=== PATIENT | female | born 1950 | race Caucasian/White ===

== ENCOUNTER 2018-06-10 21:20 | Emergency (ER) | payer BC ==
--- NOTE | 2018-06-10 22:09 | EDPHY ---
H & P Stated Complaint: near syncope, diaphoretic, nausea, vomiting @2100 abnormal rhythm per EMS Time Seen by Provider: 06/10/18 21:53 HPI/ROS: Chief Complaint: Nausea, vomiting, sweating HPI: 67-year-old woman was out to dinner at the [employer] restaurant this evening when she had the sudden onset of a wave of nausea, per family became very sweaty and then had several episodes of vomiting. Symptoms lasted for about 10 min. After she vomited she felt much better. EMS was called but they refused transport at that time. She did not have any chest pain or shortness of breath. She did not have any syncope. No recent illness. No fevers or chills. No cough. She has a family history of coronary disease in her father who was a long-time smoker. She does not have any other risk factors for heart disease. She currently is symptom free. Does not have a history of similar episodes in the past. ROS: 10 systems were reviewed and were negative except those elements noted in the HPI. PMH: Denies Social History: No smoking, occasional alcohol Family History: Father has a history of coronary artery disease but was a long- term smoker Physical Exam: Gen: Awake, Alert, No Distress HEENT: Nose: no rhinorrhea Eyes: PERRLA, EOMI Mouth: Moist mucosa Neck: Supple, no JVD Chest: nontender, lungs clear to auscultation Heart: S1, S2 normal, no murmur Abd: Soft, non-tender, no guarding Back: no CVA tenderness, no midline tenderness Ext: no edema, non-tender Skin: no rash Neuro: CN II-XII intact, Sensation grossly intact, Strength 5/5 in bilateral upper and lower extremities - Personal History Current Tetanus/Diphtheria Vaccine: Yes Current Tetanus Diphtheria and Acellular Pertussis (TDAP): Yes - Medical/Surgical History Hx Asthma: No Hx Chronic Respiratory Disease: No Hx Diabetes: No Hx Cardiac Disease: No Hx Renal Disease: No Hx Cirrhosis: No Hx Alcoholism: No Hx HIV/AIDS: No Hx Splenectomy or Spleen Trauma: No Other PMH: HTN - Social History Smoking Status: Never smoked Constitutional: Initial Vital Signs Temperature (C) 36.5 C 06/10/18 21:23 Heart Rate 87 06/10/18 21:23 Respiratory Rate 20 06/10/18 21:23 Blood Pressure 166/96 H 12/28/18 21:23 O2 Sat (%) 95 06/10/18 21:23 O2 Delivery Mode Room Air Allergies/Adverse Reactions: quinine Allergy (Verified 06/10/18 21:23) Home Medications: Medication Instructions Recorded Lisinopril/Hydrochlorothiazide 06/10/18 Potassium Chloride 40 meq PO DAILY #60 tablet.er 06/10/18 Medical Decision Making - Diagnostics EKG Interpretation: ECG time 9:37 p.m., sinus rhythm with a rate of 77, normal axis, normal intervals, no acute ST or T-wave changes. Impression: Normal ECG. ED Course/Re-evaluation: Patient's ECG is normal. Troponin 0. I have explained to her that I cannot rule out the possibility of a heart attack without serial troponins. I have also explained that cardiac problems can present on usually and without chest pain in woman. Patient understands this. She does not wish to stay in the emergency department for repeat troponin at this time. I have explained that this could represent a serious cardiac abnormality and she understands this. She will return for any concerns. She does not wish to remain have any further testing at this time. She is hypokalemic. She says that this is not a new condition for her. I have ordered some potassium for her here and prescriptions for potassium supplementation. She needs to follow up with primary care physician which she understands. She will return for any concerns. - Data Points Laboratory Results: Laboratory Results 06/10/18 21:44 06/10/18 21:44 06/10/18 06/10/18 06/10/18 21:56 21:44 21:44 WBC 7.47 10^3/uL 10^3/uL (3.80-9.50) RBC 4.93 10^6/uL 10^6/uL (4.18-5.33) Hgb 14.9 g/dL g/dL (12.6-16.3) Hct 43.1 % % (38.0-47.0) MCV 87.4 fL fL (81.5-99.8) MCH 30.2 pg pg (27.9-34.1) MCHC 34.6 g/dL g/dL (32.4-36.7) RDW 13.4 % % (11.5-15.2) Plt Count 222 10^3/uL 10^3/uL (150-400) MPV 11.3 fL fL (8.7-11.7) Neut % (Auto) 63.6 % % (39.3-74.2) Lymph % (Auto) 19.1 % % (15.0-45.0) [place] % (Auto) 6.0 % % (4.5-13.0) Eos % (Auto) 9.8 % H % (0.6-7.6) Baso % (Auto) 1.2 % % (0.3-1.7) Nucleat RBC Rel Count 0.0 % % (0.0-0.2) Absolute Neuts (auto) 4.75 10^3/uL 10^3/uL (1.70-6.50) Absolute Lymphs (auto) 1.43 10^3/uL 10^3/uL (1.00-3.00) Absolute Monos (auto) 0.45 10^3/uL 10^3/uL (0.30-0.80) Absolute Eos (auto) 0.73 10^3/uL H 10^3/uL (0.03-0.40) Absolute Basos (auto) 0.09 10^3/uL 10^3/uL (0.02-0.10) Absolute Nucleated RBC 0.00 10^3/uL 10^3/uL (0-0.01) Immature Gran % 0.3 % % (0.0-1.1) Immature Gran # 0.02 10^3/uL 10^3/uL (0.00-0.10) Sodium 135 mEq/L mEq/L (135-145) Potassium 2.8 mEq/L L mEq/L (3.5-5.2) Chloride 100 mEq/L mEq/L (97-110) Carbon Dioxide 26 mEq/l mEq/l (22-31) Anion Gap 9 mEq/L mEq/L (6-14) BUN 12 mg/dL mg/dL (7-23) Creatinine 0.7 mg/dL mg/dL (0.6-1.0) Estimated GFR > 60 Glucose 121 mg/dL H mg/dL (70-100) Calcium 9.7 mg/dL mg/dL (8.5-10.4) POC Troponin I 0.00 ng/mL ng/mL (0.00-0.08) Medications Given: Discontinued Medications Potassium Chloride (Klor Packets) 40 meq PO EDNOW ONE Stop: 06/10/18 22:49 Last Admin: 06/10/18 22:51 Dose: 40 meq Point of Care Test Results: Chemistry 06/10/18 21:56 POC Troponin I 0.00 ng/mL ng/mL (0.00-0.08) Departure - Departure Clinical Impression: Hypokalemia, Vomiting Condition: Good Instructions: Hypokalemia (ED), Acute Nausea and Vomiting (ED) Additional Instructions: Your potassium is low in the emergency department today. I recommend you start taking potassium supplements daily. Follow up with primary care physician in 4-5 days for re-evaluation. Return to the emergency department for chest pain, shortness of breath, further episodes of vomiting, fainting, or any other concerns. Referrals: CHEYANNE GREEN MD [Other] - As per Instructions Prescriptions: Potassium Chloride 40 meq PO DAILY #60 tablet.er
--- NOTE | 2018-06-10 22:45 | CPEKG ---
Test Reason : OPEN Blood Pressure : / mmHG Vent. Rate : 077 BPM Atrial Rate : 078 BPM P-R Int : 167 ms QRS Dur : 094 ms QT Int : 399 ms P-R-T Axes : 057 000 084 degrees QTc Int : 452 ms Sinus rhythm Confirmed by Chaitanya Arauz ([id number]) on 06/10/2018 10:45:01 PM Referred By: Confirmed By:Chaitanya Arauz
[2018-06-10] MEDS ORDERED: POTASSIUM CL 20 MEQ PKT PO ONE (22:48)
[2018-06-10 22:52] LABS: PLATELET COUNT 222 10^3/uL (150-400)
[2018-06-10 23:08] VITALS: BP 140/100
== END 2018-06-10 23:08 | disposition home or self-care (01) ==
DX: E87.6 Hypokalemia (principal); R11.2 Nausea with vomiting, unspecified; I10 Essential (primary) hypertension
CPT/HCPCS: 84484-PO